=== PATIENT | female | born 1980 | race American Indian/Alaskan Native ===

== ENCOUNTER 2016-11-23 13:00 | Observation (INO) | payer MEDICAID, OTHER ==
[~2016-11-23 13:00] MED LIST: PREN-96 PO
[2016-11-23] MEDS ORDERED: PREN-153 OR (14:01)
[2016-11-23 15:02] LABS: Urine RBC None Seen /hpf (0 - 4)
[2016-11-23 15:03] LABS: Basophils # (auto) 0 uL; Basophils % (auto) 0.4 % (0.0-2.0); DEFINITIVE VIEW TRANSMISSION; Eosinophils # (auto) 0.2 uL; Eosinophils % (auto) 1.6 % (0.0-7.0); Hematocrit 33.5 % (36.0-46.0); Hemoglobin 10.6 g/dL (12.2-16.2); Lymphocytes # (auto) 2.3 uL; Lymphocytes % (auto) 22.8 % (10.0-50.0); Mean Corpuscular Hgb Conc. 31.5 g/dL (32.0-36.0); Mean Platelet Volume 10.9 fL (7.4-10.4); Monocytes # (auto) 0.5 uL; Monocytes % (auto) 4.6 % (0.0-12.0); Neutrophils # (auto) 7.1 uL; Neutrophils % (auto) 70.6 % (37.0-80.0); Platelet Count (auto) 344 10^3/uL (140-450); Red Cell Distribution Width 17.6 % (11.6-16.0)
[2016-11-23 15:22] LABS: Partial Thromboplastin Time 24.5 sec (22.64-33.71); Prothrombin Time 9.4 sec (9.37-12.3)
[2016-11-23 15:26] LABS: Urine Bilirubin Negative (Negative); Urine Blood Negative /uL (Negative); Urine Color Yellow (Yellow); Urine Glucose Normal (Normal); Urine Ketone Negative (Negative); Urine Mucus FEW (None Seen); Urine Nitrite Negative (Negative); Urine Squamous Epithelial Cell FEW /hpf (<5); Urine Urobilinogen Normal (Negative); Urine pH 5.5 (5.0-8.0)
[2016-11-23 15:29] LABS: Albumin 2.7 g/dL (3.4-5.0); BUN/Creatinine Ratio 12.5; Bilirubin, Total 0.4 mg/dL (0.2-1.0); Calcium 8.4 mg/dL (8.5-10.1); Potassium 3.8 mmol/L (3.5-5.1); Total Protein 7.6 g/dL (6.4-8.2); Uric Acid 4.4 mg/dL (2.6-6.0)
[2016-11-23 15:37] LABS: INR 0.87 (0.9-1.15)
[2016-11-23] MEDS ORDERED: LACTATED RINGER'S 1,000 ML IV SCH (15:40)
[2016-11-23] MEDS ORDERED: MAGNESIUM SULFATE 40MG/ML 1,000 ML IV SCH (15:40)
[2016-11-23] MEDS ORDERED: MAGNESIUM SULFATE 40MG/ML 1,000 ML IV ONE (15:47)
== END 2016-11-23 21:30 | disposition home or self-care (01) | DRG 566 ==
LOC: LDRP 13:00
PROVIDERS: ADMIT Specialist; ATTEND Specialist
DX: O13.3 Gestational [pregnancy-induced] hypertension without significant proteinuria, third trimester (principal); O41.03X0 Oligohydramnios, third trimester, not applicable or unspecified; O36.5930 Maternal care for other known or suspected poor fetal growth, third trimester, not applicable or unspecified; O26.893 Other specified pregnancy related conditions, third trimester; R51 Headache; O48.0 Post-term pregnancy; O09.523 Supervision of elderly multigravida, third trimester; Z3A.40 40 weeks gestation of pregnancy
CPT/HCPCS: 36415; 51703; 59025; 76805; 80053; 81001; 81002; 84550; 85025; 85362; 85379; 85610; 85730; 86592; 86762; 86850; 86900; 86901; 87340; 96365; 96366; G0378; G0434; J3475; 96361

== ENCOUNTER 2016-11-29 06:55 | Inpatient (IN) | payer MEDICAID, OTHER ==
[~2016-11-29] VITALS: Ht 30.5 cm; Wt 0.5 kg
[~2016-11-29 06:55] MED LIST changes: +PREN-153 OR
[2016-11-29 08:01] LABS: Urine Bilirubin Negative (Negative); Urine Blood Negative /uL (Negative); Urine Color Yellow (Yellow); Urine Glucose Normal (Normal); Urine Ketone Negative (Negative); Urine Nitrite Negative (Negative); Urine RBC 1 /hpf (0 - 4); Urine Squamous Epithelial Cell FEW /hpf (<5); Urine Urobilinogen Normal (Negative); Urine pH 6.5 (5.0-8.0)
[2016-11-29] MEDS ORDERED: LABETALOL HCL 5 MG/ML 4ML SYRINGE IV ONE (08:15)
[2016-11-29 09:13] LABS: Basophils # (auto) 0 uL; Basophils % (auto) 0.4 % (0.0-2.0); DEFINITIVE VIEW TRANSMISSION; Eosinophils # (auto) 0.1 uL; Hematocrit 35.2 % (36.0-46.0); Lymphocytes # (auto) 1.9 uL; Lymphocytes % (auto) 18.3 % (10.0-50.0); Mean Corpuscular Hgb Conc. 31.3 g/dL (32.0-36.0); Mean Corpuscular Volume 76.5 fL (80.0-100.0); Mean Platelet Volume 10.7 fL (7.4-10.4); Monocytes # (auto) 0.4 uL; Monocytes % (auto) 3.6 % (0.0-12.0); Neutrophils % (auto) 76.7 % (37.0-80.0); Platelet Count (auto) 330 10^3/uL (140-450); Red Cell Distribution Width 18.1 % (11.6-16.0); White Blood Cell 10.5 10^3/uL (4.4-10.8)
[2016-11-29 09:26] LABS: Albumin 2.7 g/dL (3.4-5.0); BUN/Creatinine Ratio 17.7; Bilirubin, Total 0.4 mg/dL (0.2-1.0); Calcium 8.7 mg/dL (8.5-10.1); Potassium 4.1 mmol/L (3.5-5.1); Total Protein 7.4 g/dL (6.4-8.2); Uric Acid 4.3 mg/dL (2.6-6.0)
[2016-11-29 09:59] LABS: Partial Thromboplastin Time 24.6 sec (22.64-33.71); Prothrombin Time 9.4 sec (9.37-12.3)
[2016-11-29 10:00] LABS: INR 0.87 (0.9-1.15)
[2016-11-29] MEDS ORDERED: LABETALOL HCL 200 MG TAB PO ONE (10:00)
[2016-11-29] MEDS ORDERED: LACT. RINGERS/OXYTOCIN 20UNITS 1,000 ML IV SCH (10:58)
[2016-11-29] MEDS ORDERED: PENICILLIN G POT 5MIL/D5 50ML 50 ML IV ONE ×2 (10:58→11:00)
[2016-11-29] MEDS ORDERED: LACTATED RINGER'S 1,000 ML IV SCH (10:58)
[2016-11-29] MEDS ORDERED: NALBUPHINE HCL 10 MG/1ml INJECTION IV PRN (11:00)
[2016-11-29] MEDS ORDERED: DERMOPLAST 60ML BOTTLE TOP PRN (11:00)
[2016-11-29] MEDS ORDERED: LIDOCAINE 2%HCL (LOCAL ANESTH.) INJ 20ML MDV IJ ONE (11:00)
[2016-11-29] MEDS ORDERED: WITCH HAZEL-GLYCERIN PAD TOP PRN (11:00)
[2016-11-29] MEDS ORDERED: PHISODERM TOP SOLN 240ML BTL TOP PRN (11:00)
[2016-11-29] MEDS ORDERED: METHYLERGONOVINE MALEATE 0.2 MG/ML AMP IM PRN (11:00)
[2016-11-29] MEDS ORDERED: PROMETHAZINE HCL 25 MG/ML 1ML ONE (11:33)
[2016-11-29] MEDS ORDERED: IBUPROFEN 600 MG TAB PO PRN (12:15)
[2016-11-29] MEDS ORDERED: ACETAMINOPHEN 325 MG TAB PO PRN (12:15)
[2016-11-29] MEDS ORDERED: PENICILLIN G POTASSIUM 2,500,000 UNITS in D5W 5% 50 ML IV SCH (15:00)
[2016-11-29] MEDS: DOCUSATE CALCIUM 240 MG CAP PO SCH (17:54)
[2016-11-29 19:30] VITALS: BP 117/67
[2016-11-29] MEDS: LABETALOL HCL 200 MG TAB PO SCH (21:57)
[2016-11-29 21:58] VITALS: BP 125/75
[2016-11-29 23:06] VITALS: BP 121/77
[2016-11-30 00:30] VITALS: BP 130/79
[2016-11-30 03:45] VITALS: BP 120/67
[2016-11-30 08:09] VITALS: BP 142/85
[2016-11-30] MEDS: LABETALOL HCL 200 MG TAB PO SCH (09:37)
[2016-11-30] MEDS: DOCUSATE CALCIUM 240 MG CAP PO SCH (09:37)
[2016-11-30 11:41] VITALS: BP 134/84
== END 2016-11-30 11:52 | disposition home or self-care (01) | DRG 560 ==
LOC: OBSVTOIN 06:55 → LDRP 06:55
PROVIDERS: ADMIT Specialist; ATTEND Specialist
PROC: 10E0XZZ Delivery of Products of Conception, External Approach (ICD-10-PCS; principal; 2016-11-29)
DX: O62.3 Precipitate labor (principal); O10.92 Unspecified pre-existing hypertension complicating childbirth; Z37.0 Single live birth; Z3A.41 41 weeks gestation of pregnancy
CPT/HCPCS: 36415; 59025; 59409; 76805; 80053; 80307; 81001; 81002; 84550; 85025; 85610; 85730; 86850; 86900; 86901; 96365; 96366; 96374; 96375; J2540; J2590; J3490; J7060